=== PATIENT | female | born 1980 | race Caucasian/White ===

== ENCOUNTER 2018-07-05 21:21 | Emergency (ER) | payer MEDICAID ==
[~2018-07-05] VITALS: Ht 165.1 cm; Wt 81.6 kg
[~2018-07-05 21:21] MED LIST: CEPHALEXIN500 MG ORAL; IBUPROFEN600 MG ORAL; NKM
[2018-07-05 21:30] VITALS: BP 122/69
[2018-07-05 22:00] VITALS: BP 130/74
[2018-07-05 22:10] VITALS: BP 130/74
--- NOTE | 2018-07-05 23:01 | Emergency Room Report ---
History of Present Illness General Chief Complaint: Wound Recheck/Suture Removal Source: Patient Present Illness HPI Patient presents for staple removal from her right top parietal region of the scalp She reports that these were placed at [facility] However as she went there to follow-up the line was too long and she presents to our emergency room Denies any fevers or chills denies any pain Denies any focal weakness Allergies: Coded Allergies: No Known Allergies (Unverified , 02/07/16) Patient History Past Medical History: see triage record Pertinent Family History: none Now: No Reviewed Nursing Documentation: PMH: Agreed; PSxH: Agreed Nursing Documentation-PMH Past Medical History: No Stated History Review of Systems All Other Systems: negative except mentioned in HPI Physical Exam Vital Signs Date Time Temp Pulse Resp B/P (MAP) Pulse Ox O2 Delivery O2 Flow Rate FiO2 07/05/18 21:29 98.1 185 18 110/65 97 Room Air Sp02 EP Interpretation: reviewed, normal General Appearance: well appearing, no apparent distress Head: other - [address] right top parietal area of scalp Eyes: bilateral eye PERRL, bilateral eye EOMI ENT: hearing grossly normal, normal pharynx Respiratory: lungs clear Musculoskeletal: normal inspection Neurologic: alert, oriented x3, responsive Skin: other - [address], appears to be healing well, no obvious dehiscence no swelling Lymphatic: no adenopathy Medical Decision Making Diagnostic Impression: Primary Impression: staple removal ER Course The sg were removed in the appropriate fashion using a staple removal One by one the area was evaluated for dehiscence However the area remained appropriately healed and therefore all sg were removed Patient tolerated the procedure well and is stable for close outpatient follow- up Last Vital Signs Date Time Temp Pulse Resp B/P (MAP) Pulse Ox O2 Delivery O2 Flow Rate FiO2 07/05/18 22:10 98.0 80 17 130/74 99 Room Air Status: improved Disposition: HOME, SELF-CARE Condition: Improved Referrals: [facility],REFERRING (PCP) Patient Instructions: Wound Closure Removal Additional Instructions: Patient is provided with the discharge instructions notified to follow up with primary doctor in the next 2-3 days otherwise return to the er with any worsening symptoms. Please note that this report is being documented using [employer] technology. This can lead to erroneous entry secondary to incorrect interpretation by the dictating instrument. Tawana Sultana DO Jul 05, 2018 23:01
== END 2018-07-05 22:59 | disposition home or self-care (01) ==
LOC: EMR 21:49
DX: Z48.02 Encounter for removal of sutures (principal)
CPT/HCPCS: 99282